=== PATIENT | female | born 1980 | race Native Hawaiian/Other Pacific Islander ===

== ENCOUNTER 2019-05-13 07:52 | Day surgery (SDC) | payer OTHER ==
[~2019-05-13] VITALS: Ht 30.5 cm; Wt 0.5 kg
== END 2019-05-13 09:35 | disposition home or self-care (01) ==
LOC: OR 07:52
PROC: 3E0T3BZ Introduction of Anesthetic Agent into Peripheral Nerves and Plexi, Percutaneous Approach (ICD-10-PCS; principal; 2019-05-13)
PROC: 3E0T33Z Introduction of Anti-inflammatory into Peripheral Nerves and Plexi, Percutaneous Approach (ICD-10-PCS; 2019-05-13)
PROC: BR16YZZ Fluoroscopy of Lumbar Facet Joint(s) using Other Contrast (ICD-10-PCS; 2019-05-13)
DX: M47.817 Spondylosis without myelopathy or radiculopathy, lumbosacral region (principal)
CPT/HCPCS: J1100; J2001

== ENCOUNTER 2019-05-27 07:39 | Day surgery (SDC) | payer OTHER ==
[~2019-05-27] VITALS: Ht 30.5 cm; Wt 0.5 kg
== END 2019-05-27 09:10 | disposition home or self-care (01) ==
LOC: OR 07:39
PROC: 3E0T3BZ Introduction of Anesthetic Agent into Peripheral Nerves and Plexi, Percutaneous Approach (ICD-10-PCS; principal; 2019-05-27)
PROC: 3E0T33Z Introduction of Anti-inflammatory into Peripheral Nerves and Plexi, Percutaneous Approach (ICD-10-PCS; 2019-05-27)
PROC: BR16YZZ Fluoroscopy of Lumbar Facet Joint(s) using Other Contrast (ICD-10-PCS; 2019-05-27)
DX: M47.817 Spondylosis without myelopathy or radiculopathy, lumbosacral region (principal)
CPT/HCPCS: J1100; J2001

== ENCOUNTER 2019-11-25 09:03 | Day surgery (SDC) | payer OTHER | END 2019-11-25 11:10 | disposition home or self-care (01) | LOC: OR 09:03 | PROC: 3E0T3TZ Introduction of Destructive Agent into Peripheral Nerves and Plexi, Percutaneous Approach (ICD-10-PCS; principal; 2019-11-25) | PROC: BR16YZZ Fluoroscopy of Lumbar Facet Joint(s) using Other Contrast (ICD-10-PCS; 2019-11-25) | DX: M47.817 Spondylosis without myelopathy or radiculopathy, lumbosacral region (principal) | CPT/HCPCS: J2001 ==

== ENCOUNTER 2020-03-30 07:27 | Day surgery (SDC) | payer OTHER ==
[~2020-03-30] VITALS: Ht 30.5 cm; Wt 0.5 kg
== END 2020-03-30 08:44 | disposition home or self-care (01) ==
LOC: OR 07:27
PROC: 3E0R33Z Introduction of Anti-inflammatory into Spinal Canal, Percutaneous Approach (ICD-10-PCS; principal; 2020-03-30)
PROC: B01BYZZ Fluoroscopy of Spinal Cord using Other Contrast (ICD-10-PCS; 2020-03-30)
DX: M50.123 Cervical disc disorder at C6-C7 level with radiculopathy (principal)
CPT/HCPCS: J1020; J2001

== ENCOUNTER 2020-08-16 12:24 | Outpatient (CLI) | payer OTHER | END 2020-08-16 22:14 | disposition home or self-care (01) | LOC: EMG 12:24 | PROVIDERS: ATTEND Pain Medicine Interventional Pain Medicine | DX: M54.16 Radiculopathy, lumbar region (principal) | CPT/HCPCS: 95860; 95910 ==

== ENCOUNTER 2020-08-23 14:13 | Outpatient (CLI) | payer OTHER | END 2020-08-23 19:08 | disposition home or self-care (01) | LOC: EMG 14:13 | PROVIDERS: ATTEND Pain Medicine Interventional Pain Medicine | DX: M50.122 Cervical disc disorder at C5-C6 level with radiculopathy (principal) | CPT/HCPCS: 95860; 95910 ==

== ENCOUNTER 2021-02-08 12:09 | Outpatient (CLI) | payer OTHER ==
[2021-02-08 12:38] LABS: PLATELET COUNT 281 K/uL (152-353)
[2021-02-08 12:41] LABS: POTASSIUM 3.7 mmol/L (3.6-5.2)
== END 2021-02-08 22:06 | disposition home or self-care (01) ==
LOC: LABW 12:09
PROVIDERS: ATTEND Nurse Practitioner Family
DX: L20.89 Other atopic dermatitis (principal); Z79.899 Other long term (current) drug therapy
CPT/HCPCS: 36415; 80053; 85027

== ENCOUNTER 2021-04-07 19:38 | Emergency (ER) | payer OTHER ==
[~2021-04-07] VITALS: Ht 157.5 cm; Wt 96.6 kg
[2021-04-07 20:39] LABS: PLATELET COUNT 309 K/uL (152-353)
[2021-04-07 21:06] LABS: POTASSIUM 4.4 mmol/L (3.6-5.2)
[2021-04-08 00:42] VITALS: BP 117/60; TEMP 98.7
== END 2021-04-08 00:42 | disposition short-term general hospital (02) ==
LOC: ED 19:38
PROVIDERS: Hospitalist
DX: S32.038A Other fracture of third lumbar vertebra, initial encounter for closed fracture (principal); S32.048A Other fracture of fourth lumbar vertebra, initial encounter for closed fracture; S32.058A Other fracture of fifth lumbar vertebra, initial encounter for closed fracture; V49.40XA Driver injured in collision with unspecified motor vehicles in traffic accident, initial encounter; Y92.89 Other specified places as the place of occurrence of the external cause
CPT/HCPCS: 36415; 80048; 80320; 85027; 85610; 85730; 96374; 96375; 99285; J1170; J1885; J2270; J2405; Q9963